=== PATIENT | female | born 1970 | race Caucasian/White ===

== ENCOUNTER 2017-08-11 22:19 | Emergency (ER) | payer OTHER ==
[~2017-08-11] VITALS: Ht 157.5 cm; Wt 71.8 kg
[2017-08-11 22:30] VITALS: BP 138/81
--- NOTE | 2017-08-11 22:34 | NUR ---
TO BED # 2 AMB, REPORT GIVEN TO JASON BRIONES.
--- NOTE | 2017-08-11 22:35 | NUR ---
ASSUMED CARE OF PT AT THIS TIME. C/O DYSURIA AND HEMATURIA X 2 DAYS. AAOX4 WITH EVEN AND STEADY GAIT; PATIENT STATES PAIN OF 7/10 AT THIS TIME; VSS; PATIENT POSITIONED FOR COMFORT; HOB ELEVATED; BEDRAILS UP X2; BED DOWN. ER MD MADE AWARE OF PT STATUS. WILL CONTINUE TO MONITOR.
--- NOTE | 2017-08-11 23:24 | NUR ---
REPORT RECEIVED FROM ANALI GOMEZ
--- NOTE | 2017-08-11 23:25 | NUR ---
Dr. Colon evaluating patient at bedside.
[2017-08-11 23:36] LABS: APPEARANCE,URINE CLOUDY (CLEAR); BILIRUBIN,URINE NEGATIVE (NEGATIVE); BLOOD, URINE 3+ (NEGATIVE); COLOR,URINE RED (YELLOW); LEUKOCYTE ESTERASE ,URINE 2+ (NEGATIVE); NITRITE, URINE NEGATIVE (NEGATIVE); PH,URINE 5.5 (5.0-9.0); UGLUCOSE NEGATIVE (NEGATIVE)
[2017-08-11] MEDS ORDERED: PHENAZOPYRIDINE 100 MG TAB PO ONE (23:40)
[2017-08-11] MEDS ORDERED: CIPROFLOXACIN 250 MG TAB PO ONE (23:40)
[2017-08-11 23:49] LABS: RBC,URINE 50-80 /HPF (0-5); WBC,URINE TOO MANY TO COUNT /HPF (0-5)
[2017-08-12 00:10] VITALS: BP 115/76
--- NOTE | 2017-08-12 00:10 | NUR ---
Patient discharged with v/s stable. Written and verbal after care instructions given and explained. Patient alert, oriented and verbalized understanding of instructions. Ambulatory with steady gait. All questions addressed prior to discharge. ID band removed. Patient advised to follow up with PMD. Rx of PHENAZOPYRIDINE HYDRCHLORIDE 200MG AND CIPRO 750 MG given. Patient educated on indication of medication including possible reaction and side effects. Opportunity to ask questions provided and answered.
== END 2017-08-12 00:10 | disposition home or self-care (01) ==
LOC: EDBD 22:19 → MED 22:19
DX: N39.0 Urinary tract infection, site not specified (principal)
CPT/HCPCS: 81001; 81025; 87086; 87186; 99284